=== PATIENT | male | born 1970 | race Caucasian/White ===

== ENCOUNTER 2017-05-31 17:17 | Emergency (ER) | payer BC ==
[2017-05-31] MEDS ORDERED: Lidocaine 1% 30 ML SDV INJECT ONE (17:34)
--- NOTE | 2017-05-31 17:40 | EDM.PDOC ---
ED HPI GENERAL MEDICAL PROBLEM - General Chief Complaint: Upper Extremity Injury/Pain Stated Complaint: SLIVER UNDER R RING FINGER Time Seen by Provider: 05/31/17 17:30 Source of Information: Reports: Patient - History of Present Illness INITIAL COMMENTS - FREE TEXT/NARRATIVE: Patient was at home trying to assist in catching a cat and when he went down to scoop up the cat his arm hit the wooden baseboard causing a piece of it to break off underneath his fingernail. Patient comes in for further evaluation and management of that. He denies any other pain discomfort in the finger and the joint except underneath the fingernail Onset: Sudden Quality: Reports: Throbbing Improves with: Reports: Immobilization Worsens with: Reports: Movement Associated Symptoms: Reports: No Other Symptoms - Related Data Allergies Allergy/AdvReac Type Severity Reaction Status Date / Time No Known Allergies Allergy Verified 05/31/17 17:33 Home Meds: Home Meds Dexmethylphenidate HCl [Dexmethylphenidate HCl ER] 20 mg PO DAILY 04/15/17 [ History] Fluticasone Propionate [Flonase] 0 gm NASBOTH BID 04/15/17 [History] Gabapentin [Neurontin] 3 cap PO DAILY 04/15/17 [History] Ibuprofen [Ibuprofen Ib] 800 mg PO Q4H PRN 04/15/17 [History] Omeprazole Magnesium [Prilosec Otc] 20 mg PO ASDIRECTED 04/15/17 [History] Tamsulosin HCl [Tamsulosin HCl] 2 cap PO DAILY 04/15/17 [History] traZODone HCl [Trazodone HCl] 50 mg PO BEDTIME 04/15/17 [History] Past Medical History HEENT History: Reports: Hard of Hearing, Otitis Media, Other (See Below) Other HEENT History: Tinnitis. Perferation of tympanic membrane Cardiovascular History: Reports: High Cholesterol Respiratory History: Reports: Sleep Apnea Gastrointestinal History: Reports: Gastritis Genitourinary History: Reports: BPH, Prostate Disorder, Other (See Below) Other Genitourinary History: Prostatits Musculoskeletal History: Reports: Other (See Below) Other Musculoskeletal History: sTATES NERVE PAIN TO LEFT KNEE AND FOOT Psychiatric History: Reports: ADHD, Depression Endocrine/Metabolic History: Reports: Obesity/BMI 30+ Immunologic History: Reports: None Oncologic (Cancer) History: Reports: None Dermatologic History: Reports: Other (See Below) Other Dermatologic History: Verruca - Past Surgical History Other HEENT Surgeries/Procedures: Extraction of erupted tooth GI Surgical History: Reports: Colonoscopy, EGD Musculoskeletal Surgical History: Reports: None Dermatological Surgical History: Reports: Skin Biopsy Social & Family History - Tobacco Use Smoking Status *Q: Never Smoker - Recreational Drug Use Recreational Drug Use: No Drug Use in Last 12 Months: No Review of Systems - Review of Systems Review Of Systems: See Below Constitutional: Reports: No Symptoms Eyes: Reports: No Symptoms Respiratory: Reports: No Symptoms Cardiovascular: Reports: No Symptoms Musculoskeletal: Reports: No Symptoms Skin: Reports: No Symptoms, Other (nail injury-right middle finger nail deformity and pain ) ED EXAM, GENERAL - Physical Exam Exam: See Below Exam Limited By: No Limitations General Appearance: Alert, WD/WN, No Apparent Distress Respiratory/Chest: No Respiratory Distress, Lungs Clear Cardiovascular: Normal Peripheral Pulses, Regular Rate, Rhythm Back Exam: Normal Inspection, Full Range of Motion Extremities: Normal Inspection, Normal Range of Motion Skin Exam: Warm, Dry, Intact, Normal Color, No Rash, Other (right 4th finger- nail bed red, swollen, minimal blood noted, sliver noted under the skin tenderness with movement ) ED TRAUMA EXTREMITY PROCEDURES - Foreign Body Removal Indication:: foreign body removal of wood from the finger nail Consent Obtained: Patient Performing Doctor:: Lucinda Jon Foreign Body Other Location Comment:: sliver Anesthesia Type: Local Findings:: wood chunk 3mm x 3mm removed Complications:: Yes Course - Vital Signs Last Recorded V/S: Last Vital Signs Temp 35.9 C 05/31/17 17:17 Pulse 80 05/31/17 17:17 Resp 16 05/31/17 17:17 BP 147/85 H 05/31/17 17:17 Pulse Ox - Orders/Labs/Meds Meds: Medications Discontinued Medications Generic Name Dose Route Start Last Admin Trade Name Freq PRN Reason Stop Dose Admin Lidocaine HCl 30 ml 05/31/17 17:34 05/31/17 17:44 Xylocaine-Mpf 1% INJECT 05/31/17 17:35 30 ml ONETIME ONE Administration Departure - Departure Time of Disposition: 18:00 Disposition: Home, Self-Care 01 Condition: Good Clinical Impression: Foreign body - Discharge Information Instructions: Sliver Removal, Care After Referrals: Kvng Quevedo MD [Primary Care Provider] - Forms: ED Department Discharge Additional Instructions: Soak finger in warm soapy water 3 times a day for 20 minutes the next 4-5 days use [id number] Ibuprofen and Tylenol as needed for pain Follow-up in the clinic if signs of infection occur swelling redness and warmth fever
== END 2017-05-31 18:05 | disposition home or self-care (01) ==
LOC: VM.ED 17:17
DX: S60.454A Superficial foreign body of right ring finger, initial encounter (principal); Z79.899 Other long term (current) drug therapy; E78.00 Pure hypercholesterolemia, unspecified; E66.9 Obesity, unspecified; W45.8XXA Other foreign body or object entering through skin, initial encounter
CPT/HCPCS: 99283

== ENCOUNTER 2019-07-03 13:43 | Emergency (ER) | payer BC ==
[2019-07-03] MEDS ORDERED: Lidocaine 1% 30 ML SDV INJECT ONE (13:56)
--- NOTE | 2019-07-03 14:21 | EDM.PDOC ---
ED HPI GENERAL MEDICAL PROBLEM - General Chief Complaint: Laceration Stated Complaint: CUT FINGER WITH SAW Time Seen by Provider: 07/03/19 13:55 Source of Information: Reports: Patient History Limitations: Reports: No Limitations - History of Present Illness INITIAL COMMENTS - FREE TEXT/NARRATIVE: Patient presents to ER with complaints of a laceration to the distal tip of his right thumb. Was using a saw and slipped, catching his thumb. Denies any difficulty with range of motion of his fingers/thumb. Unsure of last tetanus. 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: Dressing(s) - Related Data Allergies Allergy/AdvReac Type Severity Reaction Status Date / Time No Known Allergies Allergy Verified 07/03/19 14:04 Home Meds: Home Meds Dexmethylphenidate HCl [Dexmethylphenidate HCl ER] 20 mg PO DAILY 04/15/17 [ History] Fluticasone Propionate [Flonase] 0 gm NASBOTH BID 04/15/17 [History] Gabapentin [Neurontin] 3 cap PO DAILY 04/15/17 [History] Ibuprofen [Ibuprofen Ib] 800 mg PO Q4H PRN 04/15/17 [History] Omeprazole Magnesium [Prilosec Otc] 20 mg PO ASDIRECTED 04/15/17 [History] Tamsulosin HCl 2 cap PO DAILY 04/15/17 [History] traZODone HCl [Trazodone HCl] 50 mg PO BEDTIME 04/15/17 [History] Past Medical History HEENT History: Reports: Hard of Hearing, Otitis Media, Other (See Below) Other HEENT History: Tinnitis. Perferation of tympanic membrane Cardiovascular History: Reports: High Cholesterol Respiratory History: Reports: Sleep Apnea Gastrointestinal History: Reports: Gastritis Genitourinary History: Reports: BPH, Prostate Disorder, Other (See Below) Other Genitourinary History: Prostatits Musculoskeletal History: Reports: Other (See Below) Other Musculoskeletal History: sTATES NERVE PAIN TO LEFT KNEE AND FOOT Psychiatric History: Reports: ADHD, Depression Endocrine/Metabolic History: Reports: Obesity/BMI 30+ Immunologic History: Reports: None Oncologic (Cancer) History: Reports: None Dermatologic History: Reports: Other (See Below) Other Dermatologic History: Verruca - Past Surgical History Other HEENT Surgeries/Procedures: Extraction of erupted tooth GI Surgical History: Reports: Colonoscopy, EGD Musculoskeletal Surgical History: Reports: None Dermatological Surgical History: Reports: Skin Biopsy Social & Family History - Tobacco Use Smoking Status *Q: Unknown Ever Smoked ED ROS GENERAL - Review of Systems Review Of Systems: Comprehensive ROS is negative, except as noted in HPI. ED EXAM, SKIN/RASH Exam: See Below Exam Limited By: No Limitations General Appearance: Alert, WD/WN, No Apparent Distress Extremities: No: Limited Range of Motion Neurological: Alert, Oriented Skin: Warm, Dry, Wound/Incision (Has 1 cm laceration to distal tip of thumb and a 0.5 cm avulsed area of skin. ) Location, Skin: Upper Extremity, Left ED SKIN PROCEDURES - Laceration/Wound Repair Right Digit - 1st (Thumb) Appearance: Superficial, Irregular, Mildly Contaminated Distal NVT: Neuro & Vascular Intact Anesthetic Type: Local Local Anesthesia - Lidocaine (Xylocaine): 1% Plain Local Anesthetic Volume: 3cc Skin Prep: Chlorhexidine (Hibiciens) Exploration/Debridement/Repair: Wound Explored, Explored to Base Closed with: Sutures Lac/Wound length In cm: 1 Suture Size: 4-0 # of Sutures: 2 Suture Type: Nylon, Interrupted, Simple Sterile Dressing Applied: Provider Tetanus Status Addressed: Yes Complications: No Course - Orders/Labs/Meds Meds: Medications Discontinued Medications Generic Name Dose Route Start Last Admin Trade Name Pawna PRN Reason Stop Dose Admin Lidocaine HCl 30 ml 07/03/19 13:56 07/03/19 13:59 Xylocaine-Mpf 1% INJECT 07/03/19 13:57 30 ml ONETIME ONE Administration Departure - Departure Time of Disposition: 14:24 Disposition: Home, Self-Care 01 Condition: Good Clinical Impression: Broken skin Laceration of thumb Qualifiers: Encounter type: initial encounter Damage to nail status: without damage Foreign body presence: without foreign body Laterality: right Qualified Code(s) : S61.011A - Laceration without foreign body of right thumb without damage to nail, initial encounter - Discharge Information *PRESCRIPTION DRUG MONITORING PROGRAM REVIEWED*: No *COPY OF PRESCRIPTION DRUG MONITORING REPORT IN PATIENT DASH: No Instructions: Wound Care, Adult Additional Instructions: 1. Keep wound clean and dry 2. Keep covered while working 3. Watch for increased redness, drainage or pain, signs of infection 4. Part of the wound will need to heal by secondary intent, healing from the inside out 5. Sutures out in 10 days 6. Follow up with PCP if concerns.
[2019-07-03] MEDS ORDERED: Diphtheria,Pertussis(Acell),Tetanus Vaccine 0.5 ML Syringe IM ONE (14:22)
== END 2019-07-03 14:36 | disposition home or self-care (01) ==
LOC: VM.ED 13:43 → SUPCPDRO 13:43 → VM.ED 14:36
DX: S61.011A Laceration without foreign body of right thumb without damage to nail, initial encounter (principal); F90.9 Attention-deficit hyperactivity disorder, unspecified type; M79.2 Neuralgia and neuritis, unspecified; Z23 Encounter for immunization; Z79.899 Other long term (current) drug therapy; W27.0XXA Contact with workbench tool, initial encounter
CPT/HCPCS: 12001; 90471; 90715; 99282; J2001

== ENCOUNTER 2020-10-01 07:25 | Emergency (ER) | payer BC ==
[2020-10-01] MEDS ORDERED: Amoxicillin 500 MG Cap PO ONE (07:41)
[2020-10-01] MEDS ORDERED: Take Home: Amoxicillin 500 MG Cap, 2 Cap Pack PO ONE (07:42)
--- NOTE | 2020-10-01 07:50 | EDM.PDOC ---
ED HPI GENERAL MEDICAL PROBLEM - General Chief Complaint: ENT Problem Stated Complaint: SORE THROAT Time Seen by Provider: 10/01/20 07:35 Source of Information: Reports: Patient History Limitations: Reports: No Limitations - History of Present Illness INITIAL COMMENTS - FREE TEXT/NARRATIVE: Patient comes in the emergency department complaints of a sore throat. Patient states that the sore throat started approximately 4 days ago. Patient has not taken any Tylenol ibuprofen or any numbing medicine for the back this throat. Patient is also not seen any urgent care primary care physicians regarding his sore throat. Patient states it has progressively gotten worse. He states that it is razor blade sensation back the throat. He is also noted some swelling on the right side. He states that he does have a longstanding history of tonsillitis and pharyngitis as Well as otitis media. Patient states that he not had any fever, nausea, vomiting. He states it feels like razor blade sensation when he tries to swallow. Has been relatively healthy has no other major concerns or complaints. 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: NSAIDS Sore Throat Pain Score (Numeric/FACES): 8 - Related Data Allergies Allergy/AdvReac Type Severity Reaction Status Date / Time No Known Allergies Allergy Verified 10/01/20 07:34 Home Meds: Home Meds Dexmethylphenidate HCl [Dexmethylphenidate HCl ER] 20 mg PO DAILY 04/15/17 [History] Fluticasone Propionate [Flonase] 0 gm NASBOTH BID 04/15/17 [History] Gabapentin [Neurontin] 3 cap PO DAILY 04/15/17 [History] Ibuprofen [Ibuprofen Ib] 800 mg PO Q4H PRN 04/15/17 [History] Omeprazole Magnesium [Prilosec Otc] 20 mg PO ASDIRECTED 04/15/17 [History] Tamsulosin HCl 2 cap PO DAILY 04/15/17 [History] traZODone HCl [Trazodone HCl] 50 mg PO BEDTIME 04/15/17 [History] Amoxicillin [Amoxil] 875 mg PO Q12HR 9 Days #18 tab 10/01/20 [Rx] Past Medical History HEENT History: Reports: Hard of Hearing, Otitis Media, Other (See Below) Other HEENT History: Tinnitis. Perferation of tympanic membrane Cardiovascular History: Reports: High Cholesterol Respiratory History: Reports: Sleep Apnea Gastrointestinal History: Reports: Gastritis Genitourinary History: Reports: BPH, Prostate Disorder, Other (See Below) Other Genitourinary History: Prostatits Musculoskeletal History: Reports: Other (See Below) Other Musculoskeletal History: sTATES NERVE PAIN TO LEFT KNEE AND FOOT Psychiatric History: Reports: ADHD, Depression Endocrine/Metabolic History: Reports: Obesity/BMI 30+ Immunologic History: Reports: None Oncologic (Cancer) History: Reports: None Dermatologic History: Reports: Other (See Below) Other Dermatologic History: Verruca - Past Surgical History Other HEENT Surgeries/Procedures: Extraction of erupted tooth GI Surgical History: Reports: Colonoscopy, EGD Musculoskeletal Surgical History: Reports: None Dermatological Surgical History: Reports: Skin Biopsy ED ROS GENERAL - Review of Systems Review Of Systems: Comprehensive ROS is negative, except as noted in HPI. Constitutional: Reports: Malaise, Fatigue HEENT: Reports: Throat Pain Respiratory: Reports: No Symptoms Cardiovascular: Reports: No Symptoms Endocrine: Reports: No Symptoms GI/Abdominal: Reports: No Symptoms : Reports: No Symptoms Musculoskeletal: Reports: No Symptoms Skin: Reports: No Symptoms Neurological: Reports: No Symptoms Psychiatric: Reports: No Symptoms Hematologic/Lymphatic: Reports: No Symptoms Immunologic: Reports: No Symptoms ED EXAM, GENERAL - Physical Exam Exam: See Below Exam Limited By: No Limitations General Appearance: Alert, WD/WN, No Apparent Distress Eye Exam: Bilateral Eye: EOMI, PERRL Ear Exam: Bilateral Ear: Auricle Normal, Canal Normal, TM normal Nose: Normal Inspection, Normal Mucosa, No Blood Throat/Mouth: Other (redness, bilateral tonsil 2+, patechia on tongue, swollen lymph nodes. ) Head: Atraumatic, Normocephalic Neck: Supple, Full Range of Motion Respiratory/Chest: No Respiratory Distress, Lungs Clear, Normal Breath Sounds, No Accessory Muscle Use, Chest Non-Tender Cardiovascular: Normal Peripheral Pulses, Regular Rate, Rhythm, No Edema Neurological: Alert, Oriented Psychiatric: Normal Affect, Normal Mood Skin Exam: Warm, Dry, Intact, Normal Color Course - Vital Signs Last Recorded V/S: Last Vital Signs Temp 36.5 C 10/01/20 07:36 Pulse 88 05/23/21 07:36 Resp 14 10/01/20 07:36 BP 134/73 10/01/20 07:36 Pulse Ox 98 10/01/20 07:36 - Orders/Labs/Meds Meds: Medications Discontinued Medications Generic Name Dose Route Start Last Admin Trade Name Pawan PRN Reason Stop Dose Admin Amoxicillin 1,000 mg 10/01/20 07:41 Amoxicillin 500 Mg Cap PO 10/01/20 07:42 ONETIME ONE Amoxicillin 1 packet 10/01/20 07:42 Take Home: Amoxicillin 500 Mg Cap, 2 Cap Pack PO 10/01/20 07:43 ONETIME ONE Departure - Departure Time of Disposition: 07:50 Disposition: Home, Self-Care 01 Condition: Good Clinical Impression: Tonsillitis Pharyngitis Qualifiers: Pharyngitis/tonsillitis etiology: unspecified etiology Qualified Code(s): J02.9 - Acute pharyngitis, unspecified - Discharge Information *PRESCRIPTION DRUG MONITORING PROGRAM REVIEWED*: Not Applicable *COPY OF PRESCRIPTION DRUG MONITORING REPORT IN PATIENT DASH: Not Applicable Prescriptions: Amoxicillin [Amoxil] 875 mg PO Q12HR 9 Days #18 tab Instructions: Tonsillitis, [id number], Pharyngitis, [id number], Amoxicillin capsules or tablets, Probiotics Referrals: Kvng Quevedo MD [Primary Care Provider] - Additional Instructions: 1. rest 2. increase your water intake 3. Take all antibiotics as prescribed even if feeling better 4. Take a probiotic while on antibiotics to help promote healthy GI motility 5. Activity and diet as tolerated 6. Can use Ibuprofen and tylenol for any fever or discomfort 7. Follow up with your PCP or return if symptoms progress or worsen 8. Education provided to you regarding your illness, probiotics, antibiotic prescribed 9. Call with any questions or concerns Sepsis Event Note (ED) - Evaluation Sepsis Screening Result: No Definite Risk - Focused Exam Vital Signs: Vital Signs Temp Pulse Resp BP Pulse Ox 10/01/20 07:36 36.5 C 88 14 134/73 98 - Assessment/Plan Assessment:: 1. tonsillitis 2. pharyngitis 3. sore throat Plan: 1. Medication offered to the patient- amoxicillin given 2. Script for amoxicillin sent with the patient 3. Education regarding splinting, activity, [id number] medications, and follow-up care provided. 4. All questions and concerns addressed with the patient prior to discharge
== END 2020-10-01 07:56 | disposition home or self-care (01) ==
LOC: VM.ED 07:25 → SUPCPDRO 07:25 → VM.ED 07:56
DX: J03.90 Acute tonsillitis, unspecified (principal); N40.0 Benign prostatic hyperplasia without lower urinary tract symptoms; E66.9 Obesity, unspecified; Z68.33 Body mass index [BMI] 33.0-33.9, adult; Z79.899 Other long term (current) drug therapy
CPT/HCPCS: 99282; 99283; A9270-GY